=== PATIENT | female | born 1985 | race Caucasian/White ===

== ENCOUNTER 2021-01-22 00:39 | Emergency (ER) | payer OTHER ==
[~2021-01-22 00:39] MED LIST: MEDROL 4MG DOSEP4 MG PO; NOXIFOL-D32500 UNIT PO; PENICILLIN V P250 M1 PO; PULMICORT FLE180 MCG INH; VENTOLIN HFA IN18 GM INH; VITAMIN C500 M5 PO; ZINC50 M2 PO; ZPAK PO
[2021-01-22 03:04] LABS: BASOPHIL 0.1 % (0-2); EOSINOPHIL 0.6 & (0-5); HCT 38.4 % (37.0-47.0); LYMPHOCYTE 40.7 % (15-48); MCH 29.5 pg (25.0-31.0); MCHC 33.9 g/dL (32.0-36.0); MCV 87.1 fL (78.0-100.0); MONOCYTE 5.7 % (0-12); MPV 9.1 fL (6.0-9.5); PLT 290 K/uL (150-400); RBC 4.41 M/uL (4.20-5.40); RDW 13.9 % (11.5-14.0); WBC 11.19 K/uL (4.0-10.5)
[2021-01-22 03:07] LABS: NEUTROPHIL 52.6 % (41-80)
[2021-01-22 03:23] LABS: ALBUMIN 3.7 g/dL (3.4-5.0); BILIRUBIN - TOTAL 0.3 mg/dL (0.2-1.0); BUN/CREAT RATIO (CALC) 21.1 RATIO; CREATININE 0.76 mg/dL (0.51-0.95); GLOBULIN (CALCULATION) 3.4 g/dL; POTASSIUM 4.3 mmol/L (3.5-5.1); TOTAL PROTEIN 7.1 g/dL (6.4-8.2)
[2021-01-22] MEDS ORDERED: ONDANSETRON ODT4 MG SL (03:59)
[2021-01-22] MEDS ORDERED: IMITREX100 MG PO (03:59)
[2021-01-22] MEDS ORDERED: FIORICET1 EACH PO (03:59)
== END 2021-01-22 04:22 | disposition home or self-care (01) ==
LOC: FER 00:39
PROVIDERS: Emergency Medicine Emergency Medical Services
DX: R51.9 Headache, unspecified (principal); R07.1 Chest pain on breathing; R05 Cough; R53.83 Other fatigue; Z20.822 Contact with and (suspected) exposure to COVID-19
CPT/HCPCS: 36415; 71045; 80053; 84484; 85025; 86140; 93005; J0780; J1100; J1200; J1885; J7030; U0002